=== PATIENT | female | born 1950 | race Caucasian/White ===

== ENCOUNTER 2019-02-17 16:00 | Emergency (ER) | payer MEDICARE, MEDICAID | END 2019-02-17 17:25 | disposition home or self-care (01) | LOC: UCEAST 16:00 | DX: S90.01XA Contusion of right ankle, initial encounter (principal); X58.XXXA Exposure to other specified factors, initial encounter; Y92.9 Unspecified place or not applicable; F79 Unspecified intellectual disabilities | CPT/HCPCS: 99211; G0463 ==

== ENCOUNTER 2019-07-15 11:44 | Emergency (ER) | payer MEDICARE, MEDICAID ==
[2019-07-15 13:11] LABS: ABS Eosinophils 0.2 10^3/ul (0-0.6); ABS Lymphocytes 2.8 10^3/ul (1.0-4.8); ABS Monocytes 0.8 10^3/ul (0-0.8); ABS Neutrophils 3.4 10^3/ul (1.5-7.7); Eosinophil % 2.1 %; Hematocrit 41 % (35-47); Hemoglobin 13.3 g/dL (12.0-16.0); Lymphocyte % 39.1 %; Mean Corpuscular HGB Conc 32 g/dL (31-36); Mean Corpuscular Hemoglobin 32 pg (27-31); Mean Corpuscular Volume 100 fL (80-97); Mean Platelet Volume 8.9 fL (7.4-10.4); Platelet Count 113 10^3/uL (150-450); Red Blood Count 4.11 10^6 /uL (3.70-4.87); Red Cell Distribution Width 13 % (10-15); White Blood Count 7.3 10^3/uL (3.5-10.8)
[2019-07-15 13:42] LABS: Albumin 3.9 g/dL (3.2-5.2); Albumin/Globulin Ratio 1.1 (1-3); BUN/Creatinine Ratio 44.4 (8-20); Calcium 9.3 mg/dL (8.6-10.3); EGFR African American 85.6 (>60); EGFR Non-African American 70.7 (>60); Globulin 3.4 g/dL (2-4); Potassium 3.5 mmol/L (3.5-5.0); Total Bilirubin 0.2 mg/dL (0.2-1.0); Total Protein 7.3 g/dL (6.4-8.9)
[2019-07-15 13:45] LABS: Urine Appearance Turbid; Urine Bilirubin Negative (Negative); Urine Blood 1+ (Negative); Urine Color Yellow; Urine Glucose Negative (Negative); Urine Ketones Trace (Negative); Urine Nitrite Negative (Negative); Urine Protein 2+(100 mg/dL) (Negative); Urine Specific Gravity 1.025 (1.010-1.030); Urine Urobilinogen Negative (Negative)
[2019-07-15 13:50] LABS: Urine Bacteria 3+ (Absent); Urine Red Blood Cell 3+(>10/hpf) (Absent); Urine White Blood Cell 3+(>20/hpf) (Absent)
[2019-07-15] MEDS ORDERED: Sulfamethox/Trimethoprim DS 800/160* TAB PO ONE (13:52)
[2019-07-15] MEDS ORDERED: NS 0.9% 1000 ML** 1,000 ML IV ONE (14:05)
[2019-07-15] MEDS ORDERED: Cefepime 2 GM in Dextrose(*) 2 GM/50 ML BAG IV ONE (14:06)
--- NOTE | 2019-07-15 14:07 | ED ---
HPI Febrile Illness - HPI Summary HPI Summary: This patient is a non-verbal 68-year-old female presenting to the ED with nurse esthetician with concerns for UTI. Patient has had intermittent fevers x several days, was seen at PCP office for her annual and given a regimen of Tylenol and ibuprofen d/t decreased PO intake and increased crying. Concern for some kind of pain, she has remained on this medication for several days without much improvement. Labs were obtained at the time and were WNL. Today, nurse esthetician states a concern for 101.9 temp at home and with concern for UTI. Decreased PO intake. Pt shakes her head "no" when asked if she has any pain. Stripping Machine Operator states this is her typical response. Fevers have been well controlled with Tylenol and ibuprofen at home. Continues to make urine without gross hematuria. No known kidney disease. - History of Current Complaint Chief Complaint: EDAltMentalStatus Time Seen by Provider: 07/15/19 12:13 Hx Obtained From: Family/Stripping Machine Operator Hx From Patient Unobtainable Due To: Other Onset/Duration: Started Days Ago Timing: Constant Initial Severity: Moderate Current Severity: Moderate Pain Intensity: 0 Pain Scale Used: Adult Non Verbal Aggravating Factors: Nothing Alleviating Factors: Nothing - Allergy/Home Medications Allergies/Adverse Reactions: Allergies Allergy/AdvReac Type Severity Reaction Status Date / Time aspirin Allergy Unknown Verified 07/15/19 12:00 Reaction Details carbamazepine Allergy Unknown Verified 07/15/19 12:00 Reaction Details metronidazole Allergy Unknown Verified 07/15/19 12:00 Reaction Details NSAIDS (Non-Steroidal Allergy Unknown Verified 07/15/19 12:00 Anti-Inflamma Reaction Details shellfish derived Allergy Unknown Verified 07/15/19 12:00 Reaction Details bioptic Allergy Intermediate Unknown Uncoded 11/04/12 04:49 Reaction Details seafood Allergy Intermediate Unknown Uncoded 11/04/12 04:49 Reaction Details PMH/Surg Hx/FS Hx/Imm Hx Previously Healthy: Yes Endocrine/Hematology History: Denies: Hx Diabetes, Hx Thyroid Disease Cardiovascular History: Denies: Hx Hypertension Respiratory History: Denies: Hx Asthma, Hx Chronic Obstructive Pulmonary Disease (COPD) GI History: Denies: Hx Ulcer Musculoskeletal History: Denies: Hx Osteoporosis Neurological History: Reports: Hx Seizures - Surgical History Surgery Procedure, Year, and Place: left eye implant, Vagal Nerve Stimulator - Immunization History Hx Pertussis Vaccination: No Immunizations Up to Date: Yes Infectious Disease History: No Infectious Disease History: Denies: Hx Hepatitis, Hx Human Immunodeficiency Virus (HIV), History Other Infectious Disease, Traveled Outside the [place] in Last 30 Days - Social History Occupation: Unemployed Lives: [facility] Alcohol Use: None Hx Substance Use: No Substance Use Type: Reports: None Hx Tobacco Use: No Smoking Status (MU): Never Smoked Tobacco Review of Systems - ROS Summary Review of Systems Summary: Pt non-verbal - ROS provided by nurse esthetician Positive: Fever. Negative: Chills, Fatigue, Skin Diaphoresis Negative: Palpitations, Chest Pain Negative: hematuria Negative: Bruising Positive: Slurred Speech All Other Systems Reviewed And Are Negative: Yes Physical Exam Triage Information Reviewed: Yes Vital Signs On Initial Exam: Initial Vitals Temp Pulse Resp BP Pulse Ox 99.5 F 89 16 115/78 96 07/15/19 11:52 07/15/19 11:52 07/15/19 11:52 07/15/19 11:52 07/15/19 11:52 Vital Signs Reviewed: Yes Completion Of Physical Exam Limited Due To: Other - non-verbal Skin: Positive: Warm, Skin Color Reflects Adequate Perfusion Head/Face: Positive: Normal Head/Face Inspection Eyes: Positive: EOMI, Conjunctiva Clear Neck: Positive: Supple, Nontender, No Lymphadenopathy Respiratory/Lung Sounds: Positive: Clear to Auscultation, Breath Sounds Present Cardiovascular: Positive: RRR, Pulses are Symmetrical in both Upper and Lower Extremities Musculoskeletal: Positive: Strength/ROM Intact Neurological: Positive: Speech Normal Psychiatric: Positive: Normal, Affect/Mood Appropriate Procedures - Sedation Patient Received Moderate/Deep Sedation with Procedure: No Diagnostics - Vital Signs Vital Signs Temp Pulse Resp BP Pulse Ox 07/15/19 11:52 99.5 F 89 16 115/78 96 - Laboratory Lab Results: Lab Results 07/15/19 07/15/19 07/15/19 Range/Units 12:54 12:54 13:27 WBC 7.3 (3.5-10.8) 10^3/uL RBC 4.11 (3.70-4.87) 10^6 /uL Hgb 13.3 (12.0-16.0) g/dL Hct 41 (35-47) % MCV 100 H (80-97) fL MCH 32 H (27-31) pg MCHC 32 (31-36) g/dL RDW 13 (10-15) % Plt Count 113 L (150-450) 10^3/uL MPV 8.9 (7.4-10.4) fL Neut % (Auto) 47.5 % Lymph % (Auto) 39.1 % [place] % (Auto) 10.8 % Eos % (Auto) 2.1 % Baso % (Auto) 0.5 % Absolute Neuts (auto) 3.4 (1.5-7.7) 10^3/ul Absolute Lymphs (auto) 2.8 (1.0-4.8) 10^3/ul Absolute Monos (auto) 0.8 (0-0.8) 10^3/ul Absolute Eos (auto) 0.2 (0-0.6) 10^3/ul Absolute Basos (auto) 0.0 (0-0.2) 10^3/ul Absolute Nucleated RBC 0.0 10^3/ul Nucleated RBC % 0.0 Sodium 143 (135-145) mmol/L Potassium 3.5 (3.5-5.0) mmol/L Chloride 112 H (101-111) mmol/L Carbon Dioxide 25 (22-32) mmol/L Anion Gap 6 (2-11) mmol/L BUN 36 H (6-24) mg/dL Creatinine 0.81 (0.51-0.95) mg/dL Est GFR ( Amer) 85.6 (>60) Est GFR (Non-Af Amer) 70.7 (>60) BUN/Creatinine Ratio 44.4 H (8-20) Glucose 88 (70-100) mg/dL Calcium 9.3 (8.6-10.3) mg/dL Total Bilirubin 0.20 (0.2-1.0) mg/dL AST 15 (13-39) U/L ALT 6 L (7-52) U/L Alkaline Phosphatase 69 (34-104) U/L Total Protein 7.3 (6.4-8.9) g/dL Albumin 3.9 (3.2-5.2) g/dL Globulin 3.4 (2-4) g/dL Albumin/Globulin Ratio 1.1 (1-3) Urine Color Yellow Urine Appearance Turbid Urine pH 7.0 (5-9) Ur Specific [place] 1.025 (1.010-1.030) Urine Protein 2+(100 mg/dl) A (Negative) Urine Ketones Trace A (Negative) Urine Blood 1+ A (Negative) Urine Nitrate Negative (Negative) Urine Bilirubin Negative (Negative) Urine Urobilinogen Negative (Negative) Ur Leukocyte Esterase 3+ A (Negative) Urine WBC (Auto) 3+(>20/hpf) A (Absent) Urine RBC (Auto) 3+(>10/hpf) A (Absent) Triple Phos Crystals Present A (Absent) Amorphous Crystals Present A (Absent) Urine Bacteria 3+ A (Absent) Hyaline Casts Present A (Absent) Urine Glucose Negative (Negative) Urine Ascorbic Acid * A (Negative) Result Diagrams: 07/15/19 12:54 07/15/19 12:54 Lab Statement: Any lab studies that have been ordered have been reviewed, and results considered in the medical decision making process. Course/Dx - Course Course Of Treatment: Physical examination, patient appears well and appears to be in no acute distress. Labs obtained which were WNL except for an elevated BUN/creatinine ratio and elevated BUN. Patient is likely dehydrated. She was repleted with 1 L fluids. Lungs CTA, RRR. Patient does not have cough or congestion or rhinorrhea. Stripping Machine Operator states no one else in house is sick. The patient has evidence of a UTI with 3+ leukocytes and 3+ WBC. Patient was treated with Cefepime 2mg IV with fluids. She will continue with bactrim at home PO. Pt will follow up in 2-3 days with PCP. Pt stable for discharge. - Febrile Illness Differential Diagnoses: Fever of Unknown Origin, Other: - UTI, viral illness - Diagnoses Provider Diagnoses: UTI (urinary tract infection) Discharge ED - Sign-Out/Discharge Documenting (check all that apply): Patient Departure - Discharge Plan Condition: Stable Disposition: HOME Prescriptions: Sulfamethox/Trimethoprim DS* [Bactrim DS 800/160 TAB*] 1 tab PO BID #10 tab Patient Education Materials: Urinary Tract Infection in Women (ED) Referrals: Priscilla Gonzales MD [Primary Care Provider] - Additional Instructions: Bactrim twice daily x 5 days - start this medication tomorrow morning Please follow up with PCP within the next week or so if symptoms persist Please discontinue any NSAIDS at this time - Billing Disposition and Condition Condition: STABLE Disposition: Home
[2019-07-15 15:50] VITALS: BP 120/77
[2019-07-15] MEDS ORDERED: Sulfamethox/Trimethoprim DS 800/160* TAB PO SCH (21:00)
--- NOTE | 2019-07-17 06:18 | ED ---
Imaging and Labs Follow Up Follow Up Type: Labs/Cultures Labs/Culture Result: Urine culture preliminary shows greater than 100,000 Escherichia coli. Patient Communication/Plan: Patient treated with Bactrim, presumed appropriate. Awaiting sensitivity reports. Provider Diagnoses: UTI (urinary tract infection)
== END 2019-07-15 15:50 | disposition home or self-care (01) ==
LOC: ED 11:44
DX: N39.0 Urinary tract infection, site not specified (principal); R50.9 Fever, unspecified
CPT/HCPCS: 36415; 80053; 81003; 81015; 85025; 87077; 87086; 87186; 96361; 96365; 99283; A9270-GY; J0692

== ENCOUNTER 2019-07-24 18:20 | Emergency (ER) | payer MEDICARE, MEDICAID ==
[2019-07-24 18:45] VITALS: BP 106/76
--- NOTE | 2019-07-24 19:05 | UC ---
FLU HPI - HPI Summary HPI Summary: 68-year-old female comes in with a chief complaint of cough and fever. Patient has special needs and she lives in a [facility]. When she had cough and they measured a low-grade fever they want to make sure she did not have the flu. Otherwise behaviors been normal. - History of Current Complaint Chief Complaint: UCGeneralIllness Stated Complaint: FEVER Time Seen by Provider: 07/24/19 18:39 Pain Intensity: 0 - Allergy/Home Medications Allergies/Adverse Reactions: Allergies Allergy/AdvReac Type Severity Reaction Status Date / Time aspirin Allergy Unknown Verified 07/24/19 18:45 Reaction Details carbamazepine Allergy Unknown Verified 07/24/19 18:45 Reaction Details metronidazole Allergy Unknown Verified 07/24/19 18:45 Reaction Details NSAIDS (Non-Steroidal Allergy Unknown Verified 07/24/19 18:45 Anti-Inflamma Reaction Details shellfish derived Allergy Unknown Verified 07/24/19 18:45 Reaction Details bioptic Allergy Intermediate Unknown Uncoded 07/24/19 18:45 Reaction Details seafood Allergy Intermediate Unknown Uncoded 07/24/19 18:45 Reaction Details PMH/Surg Hx/FS Hx/Imm Hx Previously Healthy: Yes - special needs,lives in [facility] Cardiovascular History: Hypertension Neurological History: Seizures - Surgical History Surgical History: Yes Surgery Procedure, Year, and Place: left eye implant, Vagal Nerve Stimulator - Family History Known Family History: Positive: Non-Contributory - Social History Alcohol Use: None Substance Use Type: None Smoking Status (MU): Never Smoked Tobacco Review of Systems All Other Systems Reviewed And Are Negative: Yes Constitutional: Positive: Fever Skin: Positive: Negative Eyes: Positive: Negative ENT: Positive: Negative Respiratory: Positive: Negative Cardiovascular: Positive: Negative Gastrointestinal: Positive: Negative Motor: Positive: Negative Neurovascular: Positive: Negative Musculoskeletal: Positive: Negative Neurological: Positive: Negative Psychological: Positive: Negative Is Patient Immunocompromised?: No Physical Exam Triage Information Reviewed: Yes Appearance: Well-Appearing, No Pain Distress, Well-Nourished Vital Signs: Initial Vital Signs Temp 98.1 F 07/24/19 18:40 Pulse 69 07/24/19 18:40 Resp 20 07/24/19 18:40 BP 106/76 07/24/19 18:40 Pulse Ox 100 07/24/19 18:40 Vital Signs Reviewed: Yes Eye Exam: Normal Eyes: Positive: Conjunctiva Clear ENT: Negative: Nasal drainage Neck: Positive: Supple Respiratory: Positive: Lungs clear, Normal breath sounds, No respiratory distress Cardiovascular: Positive: RRR Musculoskeletal: Positive: Other: - chronic muscular weakness Neurological: Positive: Alert Psychological: Positive: Normal Response To Family - Normal response to caregivers Skin Exam: Normal Flu Course/Dx - Course Course Of Treatment: In clinic patient does not have any fever. We will treat for upper respiratory tract infection symptoms and keep a close eye on her and if she gets worse she should get reevaluated. - Differential Dx/Diagnosis Provider Diagnosis: Upper respiratory infection Discharge ED - Sign-Out/Discharge Documenting (check all that apply): Patient Departure All imaging exams completed and their final reports reviewed: No Studies - Discharge Plan Condition: Stable Disposition: HOME Patient Education Materials: Upper Respiratory Infection (ED) Referrals: Priscilla Gonzales MD [Primary Care Provider] - Additional Instructions: FOLLOW UP WITH YOUR DOCTOR IF NOT COMPLETELY IMPROVED. GET REEVALUATED SOONER IF NOT IMPROVED OR WORSE OR ANY QUESTIONS OR CONCERNS. - Billing Disposition and Condition Condition: STABLE Disposition: Home
[2019-07-24 19:18] LABS: Influenza A Molecular NEGATIVE (Negative); Influenza B Molecular NEGATIVE (Negative)
== END 2019-07-24 19:34 | disposition home or self-care (01) ==
LOC: UCEAST 18:20
DX: J06.9 Acute upper respiratory infection, unspecified (principal); I10 Essential (primary) hypertension; Z88.6 Allergy status to analgesic agent; Z91.013 Allergy to seafood; Z88.8 Allergy status to other drugs, medicaments and biological substances; Z88.1 Allergy status to other antibiotic agents
CPT/HCPCS: 99212; G0463

== ENCOUNTER 2019-08-10 09:12 | Emergency (ER) | payer MEDICARE, MEDICAID ==
--- NOTE | 2019-08-10 09:44 | ED ---
HPI Febrile Illness - HPI Summary HPI Summary: This patient is a 68 year old female accompanied by a caregiver presenting to [facility] with a chief complaint of fever. Caregiver states she was seen at [facility] a few days ago - neg strep, neg influenza. Pt has been given Tylenol to manage fevers- but unclear cause. Pt has an appt wit PCP tomorrow, but brought for evaluation today. She states the patient normally feeds herself but had to be assisted today. She states she has not had urinary symptoms. Caregiver states she often gets UTIs and her urine always has odors. She denies cough, vomiting. Patient is non-verbal, however shakes her head in denial of pain. She states no changes in bowel movements. Caregiver states other members in the patient's home are sick, as of right now nobody at home has influenza or strep throat. Patient medications reviewed this visit on bedside MAR. Pt is mostly non verbal so report from caregiver - but pt answers No when asked if in pain - pt's caregiver believes this is accurate - History of Current Complaint Chief Complaint: EDFever Time Seen by Provider: 08/10/19 09:28 Hx Obtained From: Family/Marine Equipment Test Engineer Onset/Duration: Started Days Ago Pain Intensity: 0 Pain Scale Used: 0-10 Numeric - Allergy/Home Medications Allergies/Adverse Reactions: Allergies Allergy/AdvReac Type Severity Reaction Status Date / Time aspirin Allergy Unknown Verified 08/10/19 09:19 Reaction Details carbamazepine Allergy Unknown Verified 08/10/19 09:19 Reaction Details metronidazole Allergy Unknown Verified 08/10/19 09:19 Reaction Details NSAIDS (Non-Steroidal Allergy Unknown Verified 08/10/19 09:19 Anti-Inflamma Reaction Details shellfish derived Allergy Unknown Verified 08/10/19 09:19 Reaction Details bioptic Allergy Intermediate Unknown Uncoded 08/10/19 09:19 Reaction Details seafood Allergy Intermediate Unknown Uncoded 08/10/19 09:19 Reaction Details Home Medications: Home Medications Carbidopa/Levodopa [Carbidopa-Levodopa 25-100 Tab] 1 tab PO TID 08/10/19 [ History Confirmed 08/10/19] PMH/Surg Hx/FS Hx/Imm Hx Previously Healthy: No - non verbal Endocrine/Hematology History: Denies: Hx Diabetes, Hx Thyroid Disease Cardiovascular History: Denies: Hx Hypertension Respiratory History: Denies: Hx Asthma, Hx Chronic Obstructive Pulmonary Disease (COPD) GI History: Denies: Hx Ulcer Musculoskeletal History: Denies: Hx Osteoporosis Neurological History: Reports: Hx Seizures Psychiatric History: Reports: Other Psychiatric Issues/Disorders - non verbal - Cancer History Cancer Type, Location and Year: mentally challenged - Surgical History Surgery Procedure, Year, and Place: left eye implant, Vagal Nerve Stimulator Infectious Disease History: No Infectious Disease History: Denies: Hx Hepatitis, Hx Human Immunodeficiency Virus (HIV), History Other Infectious Disease, Traveled Outside the [place] in Last 30 Days - Family History Known Family History: Positive: Unknown, Non-Contributory - Social History Occupation: Disabled Lives: [facility] Alcohol Use: None Hx Substance Use: No Substance Use Type: Reports: None Hx Tobacco Use: No Smoking Status (MU): Never Smoked Tobacco Review of Systems - ROS Summary Review of Systems Summary: primarily non verbal - level 5 caveat Positive: Fever Negative: Cough Negative: Vomiting Genitourinary: Other - Denies Urinary Symptoms, besides odor which is normal for her. Positive: Other - Denies pain All Other Systems Reviewed And Are Negative: Yes Physical Exam - Summary Physical Exam Summary: Vital Signs Reviewed: Yes alert, non verbal, shakes head to some questions Eyes: Conjunctiva Clear, ELANA. EOM intact and full ENT: Hearing grossly normal TM x 2 clear, mmoist, uvula midline, no exudate, no erythema Neck: Positive: Supple Respiratory: Positive: No respiratory distress, No accessory muscle use + CTA throughout no w/r Cardiovascular: RRR nl s1, s2 no m/r CBT <2 sec abd soft + BS nt/nd no guarding, no distension Musculoskeletal Exam: contractures upper ext and feet Neurological: Positive: Alert, baseline per caregiver Psychological: Positive: Normal Response To examiner for pt's baseline Skin: Positive: no rash, no ecchymosis Triage Information Reviewed: Yes Vital Signs On Initial Exam: Initial Vitals Temp Pulse Resp BP Pulse Ox 100.4 F 90 12 106/65 93 08/10/19 09:15 08/10/19 09:15 08/10/19 09:15 08/10/19 09:15 08/10/19 09:15 Vital Signs Reviewed: Yes Procedures - Sedation Patient Received Moderate/Deep Sedation with Procedure: No Diagnostics - Vital Signs Vital Signs Temp Pulse Resp BP Pulse Ox 08/10/19 09:15 100.4 F 90 12 106/65 93 - Laboratory Result Diagrams: 08/10/19 10:07 08/10/19 10:07 Lab Statement: Any lab studies that have been ordered have been reviewed, and results considered in the medical decision making process. - Radiology CXR Radiology Interpretation Completed By: Radiologist Summary of Radiographic Findings: No evidence for acute findings. ED Provider has reviewed this report. Re-Evaluation - Re-Evaluation First Eval Re-Evaluation Time: 11:15 Comment: Patient's urines are remarkable for UTI. Will start treatment. Course/Dx - Course Course Of Treatment: Patient's a [age] female presents to urgent care with caregiver. Patient has had fevers responsive to Tylenol for 3-4 days. Patient had a negative flu and strep at urgent care couple days ago. Patient has been eating and drinking. No change in bowel or bladder. No apparent pain. Caregivers wanted her checked. On exam vital signs are stable with the exception of a low-grade temperature. Patient was given Tylenol around 8 AM. Bedside MAR. No focal findings concerning for infection. We'll check labs give fluid check a urine with a straight catheter recheck flu. Caregiver comfortable with plan. Will also check chest x-ray. Discharge ED - Discharge Plan Referrals: Priscilla Gonzales MD [Primary Care Provider] - - Attestation Statements Document Initiated by Scribe: Yes Documenting Scribe: Ren Suarez Provider For Whom Yefriibe is Documenting (Include Credential): Jolene Hunt MD Scribe Attestation: Ren Lopez, scribed for Jolene Hunt MD on 08/10/19 at 1126.
[2019-08-10] MEDS ORDERED: NS 0.9% 1000 ML** 1,000 ML IV ONE (09:54)
[2019-08-10 10:20] LABS: ABS Eosinophils 0.1 10^3/ul (0-0.6); ABS Lymphocytes 2.6 10^3/ul (1.0-4.8); ABS Monocytes 0.8 10^3/ul (0-0.8); ABS Neutrophils 3.6 10^3/ul (1.5-7.7); Hematocrit 39 % (35-47); Hemoglobin 13.1 g/dL (12.0-16.0); Lymphocyte % 36.4 %; Mean Corpuscular HGB Conc 33 g/dL (31-36); Mean Corpuscular Hemoglobin 33 pg (27-31); Mean Corpuscular Volume 99 fL (80-97); Mean Platelet Volume 9.2 fL (7.4-10.4); Nucleated Red Blood Cells % 0.1; Platelet Count 103 10^3/uL (150-450); Red Blood Count 3.98 10^6 /uL (3.70-4.87); Red Cell Distribution Width 13 % (10-15); White Blood Count 7.2 10^3/uL (3.5-10.8)
[2019-08-10 10:39] LABS: Albumin 3.8 g/dL (3.2-5.2); Albumin/Globulin Ratio 1.2 (1-3); BUN/Creatinine Ratio 35.5 (8-20); Calcium 8.8 mg/dL (8.6-10.3); EGFR African American 116.5 (>60); EGFR Non-African American 96.3 (>60); Globulin 3.1 g/dL (2-4); Potassium 3.3 mmol/L (3.5-5.0); Total Bilirubin 0.2 mg/dL (0.2-1.0); Total Protein 6.9 g/dL (6.4-8.9)
[2019-08-10 10:41] LABS: Influenza A Molecular NEGATIVE (Negative); Influenza B Molecular NEGATIVE (Negative)
[2019-08-10 11:03] LABS: Urine Appearance Turbid; Urine Bilirubin Negative (Negative); Urine Blood 2+ (Negative); Urine Color Amber; Urine Glucose Negative (Negative); Urine Ketones Negative (Negative); Urine Nitrite Negative (Negative); Urine Protein 1+(30 mg/dL) (Negative); Urine Specific Gravity 1.018 (1.010-1.030); Urine Urobilinogen Negative (Negative)
[2019-08-10 11:05] LABS: Urine Bacteria Absent (Absent); Urine Red Blood Cell 2+(6-10/hpf) (Absent); Urine White Blood Cell 3+(>20/hpf) (Absent)
[2019-08-10] MEDS ORDERED: cefTRIAXone(*) 1 GM in NS 0.9% 50 ML* 50 ML IVPB ONE (11:26)
[2019-08-10] MEDS ORDERED: Potassium Chloride* LIQUID 20 MEQ/15 ML UDC PO ONE (11:27)
[2019-08-10 12:17] VITALS: BP 117/77
--- NOTE | 2019-08-12 06:14 | ED ---
Imaging and Labs Follow Up Follow Up Type: Labs/Cultures Labs/Culture Result: Urine culture preliminary grew Escherichia coli 100,000 Patient Communication/Plan: This patient was placed on Keflex prior to discharge Patient Communication/Plan: We'll await sensitivities
== END 2019-08-10 12:16 | disposition home or self-care (01) ==
LOC: ED 09:12
DX: N39.0 Urinary tract infection, site not specified (principal); B96.20 Unspecified Escherichia coli [E. coli] as the cause of diseases classified elsewhere; Z87.440 Personal history of urinary (tract) infections; R50.9 Fever, unspecified; F79 Unspecified intellectual disabilities; Z88.8 Allergy status to other drugs, medicaments and biological substances; Z88.6 Allergy status to analgesic agent; Z91.013 Allergy to seafood
CPT/HCPCS: 36415; 51701; 71046; 80053; 81003; 81015; 85025; 87077; 87086; 87186; 96361; 96374; 99284; A9270-GY; J0696

== ENCOUNTER 2021-05-21 19:28 | Observation (INO) ==
[2021-05-21] MEDS ORDERED: NS 0.9% 1000 ml BAG 2,000 ML IV ONE (19:46)
[2021-05-21 21:06] LABS: ABS Neutrophils 7.3 10^3/ul (1.5-7.7); Eosinophil % 0.1 %; Hematocrit 44 % (35-47); Hemoglobin 14.3 g/dL (12.0-16.0); Lymphocyte % 19.6 %; Mean Corpuscular HGB Conc 33 g/dL (31-36); Mean Corpuscular Hemoglobin 33 pg (27-31); Mean Corpuscular Volume 100 fL (80-97); Mean Platelet Volume 8.9 fL (7.4-10.4); Platelet Count 244 10^3/uL (150-450); Red Blood Count 4.39 10^6 /uL (3.70-4.87); Red Cell Distribution Width 13 % (10-15); White Blood Count 10.4 10^3/uL (3.5-10.8)
[2021-05-21 21:16] LABS: Activated Partial Thrombo Time 28.5 seconds (26.0-38.0); INR 1.12 (0.86-1.15)
[2021-05-21 21:19] LABS: Influenza A Molecular Negative (Negative); Influenza B Molecular Negative (Negative)
[2021-05-21 21:20] LABS: Rapid COVID-19 Molecular Undetected (Undetected)
[2021-05-21 21:21] LABS: Albumin 4.3 g/dL (3.2-5.2); C Reactive Protein 2.9 mg/L (<8.01); Calcium 10.1 mg/dL (8.6-10.3); Globulin 4.3 g/dL (2-4); Total Bilirubin 0.4 mg/dL (0.2-1.0); Total Protein 8.6 g/dL (6.4-8.9)
[2021-05-21 21:23] LABS: Troponin I 0.02 ng/mL (<0.03)
[2021-05-21 21:59] LABS: Urine Appearance Cloudy; Urine Bilirubin Negative (Negative); Urine Blood Negative (Negative); Urine Color Yellow; Urine Glucose Negative (Negative); Urine Ketones Trace (Negative); Urine Nitrite Positive (Negative); Urine Protein Negative (Negative); Urine Specific Gravity 1.024 (1.002-1.030); Urine Urobilinogen Negative (Negative)
[2021-05-21] MEDS ORDERED: cefTRIAXone 1 gm/50 mL NS BAG 1 GM/50 ML BAG IV ONE (22:10)
[2021-05-21 22:52] LABS: Urine Bacteria 3+ (Absent); Urine Red Blood Cell 3+(>10/hpf) (Absent); Urine White Blood Cell 3+(>20/hpf) (Absent)
[2021-05-22] MEDS ORDERED: Lactated Ringers 500 ml BAG 500 ML IV ONE (02:38)
[2021-05-22] MEDS ORDERED: ZINC OXIDE TOPICAL PRN (02:39)
[2021-05-22 02:47] LABS: Calcium 9.1 mg/dL (8.6-10.3)
[2021-05-22] MEDS ORDERED: Lactated Ringers 1000 ml BAG 1,000 ML IV SCH (03:00)
[2021-05-22] MEDS: KCL 20 MEQ/100 ML IVPREMIX 20 MEQ/100 ML BAG IV SCH ×2 (04:07→06:27)
[2021-05-22] MEDS ORDERED: Potassium Chloride IV 2 MEQ/ML 10 ML VIAL (20 MEQ) IVPB SCH (06:00)
[2021-05-22 06:39] LABS: ABS Basophils 0.1 10^3/ul (0-0.2); ABS Eosinophils 0.1 10^3/ul (0-0.6); ABS Lymphocytes 2.5 10^3/ul (1.0-4.8); ABS Monocytes 0.8 10^3/ul (0-0.8); ABS Neutrophils 6.6 10^3/ul (1.5-7.7); Eosinophil % 0.8 %; Hematocrit 37 % (35-47); Hemoglobin 12.1 g/dL (12.0-16.0); Lymphocyte % 24.8 %; Mean Corpuscular HGB Conc 33 g/dL (31-36); Mean Corpuscular Hemoglobin 33 pg (27-31); Mean Corpuscular Volume 101 fL (80-97); Nucleated Red Blood Cells % 0.1; Platelet Count 184 10^3/uL (150-450); Red Blood Count 3.67 10^6 /uL (3.70-4.87); Red Cell Distribution Width 13 % (10-15)
[2021-05-22 06:56] LABS: Calcium 8.9 mg/dL (8.6-10.3); Potassium 3.8 mmol/L (3.5-5.0)
[2021-05-22] MEDS: Senna TAB 8.6 mg TAB PO SCH ×2 (08:36→20:36)
[2021-05-22] MEDS: Heparin 5000 UNITS/ML 1 mL VIAL SUBCUT SCH ×2 (08:37→20:29)
[2021-05-22] MEDS: CMCS: Dorzolamide/Timolol OPTH (NF) 10 ML BOT LEFT EYE SCH ×2 (08:38→20:54)
[2021-05-22] MEDS ORDERED: Zinc Oxide 16% PASTE (Butt Paste) 30 gm TUBE TOPICAL PRN (09:00)
[2021-05-22] MEDS ORDERED: Polyethylene Glycol 3350 17 GM PACKET PO SCH (09:00)
[2021-05-22] MEDS ORDERED: D5W 1000 ml BAG 1,000 ML IV SCH ×2 (10:00→18:00)
[2021-05-22] MEDS: Isosorbide Mononit ER 30mg TAB PO SCH (11:03)
[2021-05-22] MEDS: Carbidopa/Levodop CR 50/200 TAB.CR PO SCH ×3 (11:05→19:52)
[2021-05-22] MEDS: Multivitamins/Minerals TAB PO SCH (11:07)
[2021-05-22] MEDS: Magnesium Hydroxide LIQ 30 ML UDC PO SCH (11:08)
[2021-05-22] MEDS: Cholecalciferol (VIT D3) 1,000 unit TAB PO SCH (11:08)
[2021-05-22] MEDS ORDERED: KCL 20 MEQ/100 ML IVPREMIX 20 MEQ/100 ML BAG IV SCH (11:30)
[2021-05-22] MEDS ORDERED: NS 0.9% 1000 ml BAG 1,000 ML IV ONE (12:34)
[2021-05-22 15:48] LABS: Calcium 8.2 mg/dL (8.6-10.3); Potassium 3.4 mmol/L (3.5-5.0)
[2021-05-22] MEDS: Chlorhexidine MOUTHWASH 0.12% 15 ML UDC SWISH SPIT SCH ×2 (19:53→23:35)
[2021-05-22] MEDS ORDERED: ZONISAMIDE 50 MG PO SCH (21:00)
[2021-05-22] MEDS ORDERED: Latanoprost 0.005% 2.5 ml BTL LEFT EYE SCH (21:00)
[2021-05-22] MEDS ORDERED: cefTRIAXone 1 gm/50 mL NS BAG 1 GM/50 ML BAG IVPB SCH (22:00)
[2021-05-23] MEDS: Carbidopa/Levodop CR 50/200 TAB.CR PO SCH ×3 (00:19→14:01)
[2021-05-23] MEDS ORDERED: D5W 1000 ml BAG 1,000 ML IV SCH (07:00)
[2021-05-23 07:25] LABS: Calcium 8.4 mg/dL (8.6-10.3)
[2021-05-23] MEDS ORDERED: Potassium Chloride LIQUID 20 MEQ/15 ML LIQUID PO ONE (08:21)
[2021-05-23] MEDS: Heparin 5000 UNITS/ML 1 mL VIAL SUBCUT SCH (10:09)
[2021-05-23] MEDS: Isosorbide Mononit ER 30mg TAB PO SCH (10:12)
[2021-05-23] MEDS: Cholecalciferol (VIT D3) 1,000 unit TAB PO SCH (10:12)
[2021-05-23] MEDS: Multivitamins/Minerals TAB PO SCH (10:12)
[2021-05-23] MEDS: CMCS: Dorzolamide/Timolol OPTH (NF) 10 ML BOT LEFT EYE SCH (10:13)
[2021-05-23] MEDS: Senna TAB 8.6 mg TAB PO SCH (10:17)
[2021-05-23] MEDS: Magnesium Hydroxide LIQ 30 ML UDC PO SCH (10:17)
[2021-05-23 12:23] VITALS: BP 91/50
[2021-05-23] MEDS: Chlorhexidine MOUTHWASH 0.12% 15 ML UDC SWISH SPIT SCH (12:46)
[2021-05-23] MEDS ORDERED: Zonisamide 100 mg CAP (NF) PO SCH (21:00)
== END 2021-05-23 15:05 ==
LOC: ED 19:28 → INTOOBSV 05-22 02:31 → EDHOLD 05-22 02:31 → SUATTDRO 05-22 02:31 → OBSVTOIN 05-22 02:31 → MED 05-22 17:30
PROVIDERS: ADMIT Internal Medicine; ATTEND Internal Medicine

== ENCOUNTER 2021-07-23 10:09 | Inpatient (IN) ==
[2021-07-23 11:21] LABS: ABS Lymphocytes 2.1 10^3/ul (1.0-4.8); ABS Monocytes 0.8 10^3/ul (0-0.8); ABS Neutrophils 6.9 10^3/ul (1.5-7.7); Eosinophil % 0.5 %; Hematocrit 48 % (35-47); Hemoglobin 15.2 g/dL (12.0-16.0); Lymphocyte % 21.4 %; Mean Corpuscular HGB Conc 31 g/dL (31-36); Mean Corpuscular Hemoglobin 32 pg (27-31); Mean Corpuscular Volume 103 fL (80-97); Mean Platelet Volume 9.8 fL (7.4-10.4); Platelet Count 134 10^3/uL (150-450); Red Blood Count 4.72 10^6 /uL (3.70-4.87); Red Cell Distribution Width 14 % (10-15)
[2021-07-23 11:37] LABS: Activated Partial Thrombo Time 27.6 seconds (26.0-38.0); INR 1.17 (0.86-1.15); Rapid COVID-19 Molecular Undetected (Undetected)
[2021-07-23 11:38] LABS: ALT 6 U/L (7-52); AST 24 U/L (13-39); Albumin 4.4 g/dL (3.2-5.2); Alkaline Phosphatase 80 U/L (35-149); Blood Urea Nitrogen 55 mg/dL (6-24); C Reactive Protein 3.61 mg/L (<8.01); CO2 Carbon Dioxide 24 mmol/L (22-32); Calcium 10.1 mg/dL (8.6-10.3); Globulin 4.3 g/dL (2-4); Glucose 129 mg/dL (70-100); Total Protein 8.7 g/dL (6.4-8.9); eGFR CKD-EPI 70.6 (>60)
[2021-07-23 11:42] LABS: Anion Gap 12 mmol/L (2-11); Chloride 122 mmol/L (101-111); Sodium 158 mmol/L (135-145); Troponin I 0.03 ng/mL (<0.03)
[2021-07-23] MEDS ORDERED: Lactated Ringers 1000 ml BAG 1,000 ML IV ONE (11:44)
[2021-07-23] MEDS: KCL 20 MEQ/100 ML IVPREMIX 20 MEQ/100 ML BAG IV SCH ×2 (12:29→15:04)
[2021-07-23 13:12] LABS: Urine Appearance Cloudy; Urine Bilirubin Negative (Negative); Urine Blood Negative (Negative); Urine Color Yellow; Urine Glucose Negative (Negative); Urine Ketones 1+ (Negative); Urine Nitrite Negative (Negative); Urine Protein 1+(30 mg/dL) (Negative); Urine Specific Gravity 1.024 (1.002-1.030); Urine Urobilinogen Negative (Negative)
[2021-07-23 13:16] LABS: Urine Amorphous Crystals Present (Absent); Urine Bacteria 3+ (Absent); Urine Red Blood Cell 2+(6-10/hpf) (Absent); Urine Squamous Epithelial Cell Present (Absent); Urine White Blood Cell 3+(>20/hpf) (Absent)
[2021-07-23] MEDS ORDERED: cefTRIAXone 1 gm/50 mL NS BAG 1 GM/50 ML BAG IV ONE (13:21)
[2021-07-23] MEDS ORDERED: Carbidopa/Levodopa ER 25/100 TABLET.ER PO ONE (14:49)
[2021-07-23] MEDS ORDERED: Carbidopa/Levodop CR 50/200 TAB.CR PO ONE (15:00)
[2021-07-23] MEDS ORDERED: Bacitracin OINTMENT TUBE TOPICAL PRN (15:16)
[2021-07-23] MEDS ORDERED: Magnesium Hydroxide LIQ 30 ML UDC PO PRN (15:16)
[2021-07-23] MEDS ORDERED: Cefepime 1 GM in Dextrose 1 GM/50 ML BAG IV ONE (15:24)
[2021-07-23] MEDS: D5W 1000 ml BAG 1,000 ML IV SCH (18:24)
[2021-07-23 19:12] LABS: Calcium 9.5 mg/dL (8.6-10.3); Potassium 3.3 mmol/L (3.5-5.0); eGFR CKD-EPI 97.3 (>60)
[2021-07-23 19:12] LABS: Magnesium 2.8 mg/dL (1.9-2.7)
[2021-07-23] MEDS: Heparin 5000 UNITS/ML 1 mL VIAL SUBCUT SCH (21:07)
[2021-07-23] MEDS: Senna TAB 8.6 mg TAB PO SCH (21:08)
[2021-07-23] MEDS: Carbidopa/Levodop CR 50/200 TAB.CR PO SCH (21:09)
[2021-07-23] MEDS: CMCS:Zonisamide 50 mg CAP (NF) PO SCH (21:10)
[2021-07-23] MEDS: CMCS:Dorzolamide/Timolol OPTH (NF) 10 ML BOT LEFT EYE SCH (21:12)
[2021-07-23] MEDS: Latanoprost 0.005% 2.5 ml BTL LEFT EYE SCH (21:13)
[2021-07-24] MEDS: Cefepime 1 GM in Dextrose 1 GM/50 ML BAG IV SCH ×2 (02:43→16:19)
[2021-07-24] MEDS ORDERED: Cefepime ADVAN 1 GM in NS 0.9% 50 ML 50 ML IVPB SCH (03:00)
[2021-07-24] MEDS: D5W 1000 ml BAG 1,000 ML IV SCH (04:10)
[2021-07-24] MEDS: Heparin 5000 UNITS/ML 1 mL VIAL SUBCUT SCH ×3 (05:56→21:42)
[2021-07-24 07:25] LABS: Hematocrit 39 % (35-47); Hemoglobin 12.6 g/dL (12.0-16.0); Mean Corpuscular HGB Conc 32 g/dL (31-36); Mean Corpuscular Hemoglobin 33 pg (27-31); Mean Corpuscular Volume 102 fL (80-97); Red Blood Count 3.85 10^6 /uL (3.70-4.87); Red Cell Distribution Width 13 % (10-15); White Blood Count 6.9 10^3/uL (3.5-10.8)
[2021-07-24 07:33] LABS: Calcium 8.8 mg/dL (8.6-10.3); Potassium 3.1 mmol/L (3.5-5.0); eGFR CKD-EPI 101.6 (>60)
[2021-07-24 07:55] LABS: ABS Eosinophils 0.2 10^3/ul (0-0.6); ABS Lymphocytes 2.3 10^3/ul (1.0-4.8); ABS Monocytes 0.5 10^3/ul (0-0.8); ABS Neutrophils 3.9 10^3/ul (1.5-7.7); Eosinophil % 2.6 %; Mean Platelet Volume 10.4 fL (7.4-10.4); Nucleated Red Blood Cells % 0.1; Platelet Count 82 10^3/uL (150-450)
[2021-07-24] MEDS: Senna TAB 8.6 mg TAB PO SCH ×2 (08:34→20:39)
[2021-07-24] MEDS: Cholecalciferol (VIT D3) 1,000 unit TAB PO SCH (08:34)
[2021-07-24] MEDS: Isosorbide Mononit ER 30mg TAB PO SCH (08:36)
[2021-07-24] MEDS: Vitamin THERAPEUTIC TAB PO SCH (08:37)
[2021-07-24] MEDS: Carbidopa/Levodop CR 50/200 TAB.CR PO SCH ×3 (08:37→20:39)
[2021-07-24] MEDS: Polyethylene Glycol 3350 17 GM PACKET PO SCH (08:39)
[2021-07-24] MEDS: CMCS:Dorzolamide/Timolol OPTH (NF) 10 ML BOT LEFT EYE SCH ×2 (08:44→20:40)
[2021-07-24] MEDS ORDERED: Potassium Chlor 20 meq TAB.ER PO ONE (09:29)
[2021-07-24] MEDS ORDERED: NS 0.9% 1000 ml BAG 1,000 ML IV ONE (11:53)
[2021-07-24] MEDS: CMCS:Zonisamide 50 mg CAP (NF) PO SCH (20:40)
[2021-07-24] MEDS: Latanoprost 0.005% 2.5 ml BTL LEFT EYE SCH (20:40)
[2021-07-25] MEDS: Cefepime 1 GM in Dextrose 1 GM/50 ML BAG IV SCH (02:42)
[2021-07-25] MEDS: Heparin 5000 UNITS/ML 1 mL VIAL SUBCUT SCH ×3 (05:59→20:45)
[2021-07-25 06:54] LABS: ABS Eosinophils 0.2 10^3/ul (0-0.6); ABS Lymphocytes 2.8 10^3/ul (1.0-4.8); ABS Monocytes 0.5 10^3/ul (0-0.8); ABS Neutrophils 3.1 10^3/ul (1.5-7.7); Eosinophil % 2.6 %; Hematocrit 35 % (35-47); Hemoglobin 11.6 g/dL (12.0-16.0); Lymphocyte % 42.6 %; Mean Corpuscular HGB Conc 33 g/dL (31-36); Mean Corpuscular Hemoglobin 33 pg (27-31); Mean Corpuscular Volume 101 fL (80-97); Mean Platelet Volume 10.6 fL (7.4-10.4); Nucleated Red Blood Cells % 0.1; Platelet Count 56 10^3/uL (150-450); Red Blood Count 3.52 10^6 /uL (3.70-4.87); Red Cell Distribution Width 13 % (10-15); White Blood Count 6.6 10^3/uL (3.5-10.8)
[2021-07-25 07:10] LABS: Calcium 8.3 mg/dL (8.6-10.3); Magnesium 2.1 mg/dL (1.9-2.7); Potassium 3.7 mmol/L (3.5-5.0); eGFR CKD-EPI 101.6 (>60)
[2021-07-25] MEDS: Isosorbide Mononit ER 30mg TAB PO SCH (08:16)
[2021-07-25] MEDS: Senna TAB 8.6 mg TAB PO SCH ×2 (08:16→20:45)
[2021-07-25] MEDS: Polyethylene Glycol 3350 17 GM PACKET PO SCH (08:17)
[2021-07-25] MEDS: Vitamin THERAPEUTIC TAB PO SCH (08:17)
[2021-07-25] MEDS: Cholecalciferol (VIT D3) 1,000 unit TAB PO SCH (08:17)
[2021-07-25] MEDS: Carbidopa/Levodop CR 50/200 TAB.CR PO SCH ×3 (08:18→20:46)
[2021-07-25] MEDS: CMCS:Dorzolamide/Timolol OPTH (NF) 10 ML BOT LEFT EYE SCH ×2 (08:19→20:48)
[2021-07-25] MEDS ORDERED: Pneumococcal Vac 23-Polyvalent IM ONE (09:00)
[2021-07-25] MEDS ORDERED: Flu vaccine *QUAD* 2021-22* 0.5 ML SYRINGE IM ONE (09:00)
[2021-07-25] MEDS ORDERED: Lactated Ringers 1000 ml BAG 1,000 ML IV ONE (11:21)
[2021-07-25] MEDS ORDERED: cefTRIAXone 1 gm/50 mL NS BAG 1 GM/50 ML BAG IVPB SCH (15:00)
[2021-07-25] MEDS: Latanoprost 0.005% 2.5 ml BTL LEFT EYE SCH (20:47)
[2021-07-25] MEDS: CMCS:Zonisamide 50 mg CAP (NF) PO SCH (20:48)
[2021-07-26 05:05] LABS: ABS Eosinophils 0.1 10^3/ul (0-0.6); ABS Lymphocytes 2.7 10^3/ul (1.0-4.8); ABS Monocytes 0.7 10^3/ul (0-0.8); ABS Neutrophils 3.3 10^3/ul (1.5-7.7); Eosinophil % 2.1 %; Hematocrit 37 % (35-47); Hemoglobin 12.1 g/dL (12.0-16.0); Lymphocyte % 39.4 %; Mean Corpuscular HGB Conc 33 g/dL (31-36); Mean Corpuscular Hemoglobin 32 pg (27-31); Mean Corpuscular Volume 100 fL (80-97); Mean Platelet Volume 11.4 fL (7.4-10.4); Nucleated Red Blood Cells % 0.1; Platelet Count 67 10^3/uL (150-450); Red Blood Count 3.75 10^6 /uL (3.70-4.87); Red Cell Distribution Width 13 % (10-15); White Blood Count 6.9 10^3/uL (3.5-10.8)
[2021-07-26 05:19] LABS: Calcium 8.4 mg/dL (8.6-10.3); Magnesium 2.2 mg/dL (1.9-2.7); eGFR CKD-EPI 106.5 (>60)
[2021-07-26] MEDS: Heparin 5000 UNITS/ML 1 mL VIAL SUBCUT SCH ×2 (05:37→13:43)
[2021-07-26] MEDS: Cholecalciferol (VIT D3) 1,000 unit TAB PO SCH (09:02)
[2021-07-26] MEDS: Isosorbide Mononit ER 30mg TAB PO SCH (09:02)
[2021-07-26] MEDS: CMCS:Dorzolamide/Timolol OPTH (NF) 10 ML BOT LEFT EYE SCH (09:03)
[2021-07-26] MEDS: Polyethylene Glycol 3350 17 GM PACKET PO SCH (09:03)
[2021-07-26] MEDS: Vitamin THERAPEUTIC TAB PO SCH (09:03)
[2021-07-26] MEDS: Senna TAB 8.6 mg TAB PO SCH (09:03)
[2021-07-26] MEDS: Carbidopa/Levodop CR 50/200 TAB.CR PO SCH ×2 (09:04→13:43)
[2021-07-26 13:29] VITALS: BP 90/46
[2021-07-27 10:57] LABS: HIT ELISA 0.068 OD (<0.400); Heparin PF4 Antibody Interp Negative (Negative)
== END 2021-07-26 14:41 | DRG 690 ==
LOC: ED 10:09 → SUATTDRO 14:39 → EDHOLD 14:39 → MEDTELE 16:57
PROVIDERS: ADMIT Internal Medicine; ATTEND Student in an Organized Health Care Education/Training Program

== ENCOUNTER 2021-09-08 12:21 | Observation (INO) ==
[2021-09-08] MEDS ORDERED: Ondansetron 4 mg VIAL 2 MG/ML 2 ml VIAL IV ONE (14:46)
[2021-09-08 15:33] LABS: ABS Eosinophils 0.1 10^3/ul (0-0.6); ABS Lymphocytes 1.7 10^3/ul (1.0-4.8); ABS Monocytes 1.3 10^3/ul (0-0.8); ABS Neutrophils 12.8 10^3/ul (1.5-7.7); Eosinophil % 0.4 %; Hematocrit 46 % (35-47); Hemoglobin 15.2 g/dL (12.0-16.0); Mean Corpuscular HGB Conc 33 g/dL (31-36); Mean Corpuscular Hemoglobin 33 pg (27-31); Mean Corpuscular Volume 99 fL (80-97); Mean Platelet Volume 9.6 fL (7.4-10.4); Platelet Count 102 10^3/uL (150-450); Red Blood Count 4.66 10^6 /uL (3.70-4.87); Red Cell Distribution Width 13 % (10-15); White Blood Count 15.9 10^3/uL (3.5-10.8)
[2021-09-08] MEDS ORDERED: Lactated Ringers 1000 ml BAG 1,000 ML IV ONE ×2 (15:41→19:42)
[2021-09-08 15:43] LABS: Activated Partial Thrombo Time 31.7 seconds (26.0-38.0); INR 0.98 (0.86-1.15)
[2021-09-08 15:47] LABS: Albumin 4.5 g/dL (3.2-5.2); Albumin/Globulin Ratio 1.3 (1-3); C Reactive Protein 3.85 mg/L (<8.01); Calcium 10.3 mg/dL (8.6-10.3); Globulin 3.6 g/dL (2-4); Potassium 3.4 mmol/L (3.5-5.0); Total Bilirubin 0.3 mg/dL (0.2-1.0); Total Protein 8.1 g/dL (6.4-8.9); eGFR CKD-EPI 94.5 (>60)
[2021-09-08 16:52] LABS: Urine Appearance Turbid; Urine Bilirubin Negative (Negative); Urine Blood Negative (Negative); Urine Color Amber; Urine Glucose Negative (Negative); Urine Ketones Trace (Negative); Urine Nitrite Positive (Negative); Urine Protein Negative (Negative); Urine Specific Gravity 1.017 (1.002-1.030); Urine Urobilinogen Negative (Negative)
[2021-09-08] MEDS ORDERED: cefTRIAXone 1 gm/50 mL NS BAG 1 GM/50 ML BAG IV ONE (16:56)
[2021-09-08 17:12] LABS: Urine Bacteria Absent (Absent); Urine Red Blood Cell Absent (Absent); Urine White Blood Cell 3+(>20/hpf) (Absent)
[2021-09-08] MEDS ORDERED: Ondansetron 4 mg VIAL 2 MG/ML 2 ml VIAL IV PRN (19:40)
[2021-09-08] MEDS ORDERED: Al Hydrox/Mg Hydrox/Simet LIQ 30 ML UDC PO PRN (19:43)
[2021-09-08] MEDS ORDERED: ACETAZOLAMIDE SODIUM 500 MG PO SCH (21:00)
[2021-09-08] MEDS: Enoxaparin 40 MG/0.4 ML SYR SUBCUT SCH (21:04)
[2021-09-08] MEDS ORDERED: Carbidopa/Levodop CR 50/200 TAB.CR PO ONE (22:00)
[2021-09-08] MEDS: Senna TAB 8.6 mg TAB PO SCH (22:14)
[2021-09-08] MEDS: Docusate LIQ 100 MG/10 ML UDC PO SCH (22:15)
[2021-09-09] MEDS: PTO: Carbidopa/Levodopa ER 25/100 TABLET.ER PO SCH ×4 (03:07→20:28)
[2021-09-09] MEDS: PTO: Dorzolamide/Timolol OPTH (NF) 10 ML BOT LEFT EYE SCH ×3 (03:07→20:59)
[2021-09-09] MEDS: PTO: Brimonidine 0.2% 5 ML BTL LEFT EYE SCH ×3 (03:07→20:59)
[2021-09-09] MEDS: PTO: Latanoprost 0.005% 2.5 ml BTL LEFT EYE SCH ×2 (03:14→20:59)
[2021-09-09] MEDS: ZONISAMIDE 100 MG PO SCH ×2 (03:15→20:35)
[2021-09-09 06:14] LABS: ABS Eosinophils 0.1 10^3/ul (0-0.6); ABS Lymphocytes 2.4 10^3/ul (1.0-4.8); ABS Monocytes 0.7 10^3/ul (0-0.8); ABS Neutrophils 4.4 10^3/ul (1.5-7.7); Eosinophil % 1.3 %; Hematocrit 39 % (35-47); Hemoglobin 12.6 g/dL (12.0-16.0); Lymphocyte % 32.1 %; Mean Corpuscular HGB Conc 32 g/dL (31-36); Mean Corpuscular Hemoglobin 32 pg (27-31); Mean Corpuscular Volume 99 fL (80-97); Mean Platelet Volume 9.3 fL (7.4-10.4); Nucleated Red Blood Cells % 0.1; Platelet Count 80 10^3/uL (150-450); Red Blood Count 3.91 10^6 /uL (3.70-4.87); Red Cell Distribution Width 13 % (10-15); White Blood Count 7.6 10^3/uL (3.5-10.8)
[2021-09-09 06:27] LABS: Potassium 3.7 mmol/L (3.5-5.0); eGFR CKD-EPI 101.6 (>60)
[2021-09-09] MEDS: Isosorbide Mononit ER 30mg TAB PO SCH (10:35)
[2021-09-09] MEDS: Senna TAB 8.6 mg TAB PO SCH ×2 (10:35→20:34)
[2021-09-09] MEDS: Polyethylene Glycol 3350 17 GM PACKET PO SCH (10:37)
[2021-09-09] MEDS: Docusate LIQ 100 MG/10 ML UDC PO SCH ×2 (10:37→20:30)
[2021-09-09] MEDS: Chlorhexidine MOUTHWASH 0.12% 15 ML UDC SWISH SPIT SCH ×2 (10:41→21:04)
[2021-09-09] MEDS ORDERED: cefTRIAXone 1 gm/50 mL NS BAG 1 GM/50 ML BAG IVPB SCH (15:00)
[2021-09-09] MEDS: Enoxaparin 40 MG/0.4 ML SYR SUBCUT SCH (20:31)
[2021-09-10 04:01] VITALS: BP 145/82
[2021-09-10] MEDS: PTO: Dorzolamide/Timolol OPTH (NF) 10 ML BOT LEFT EYE SCH (09:21)
[2021-09-10] MEDS: Senna TAB 8.6 mg TAB PO SCH (09:23)
[2021-09-10] MEDS: Isosorbide Mononit ER 30mg TAB PO SCH (09:23)
[2021-09-10] MEDS: PTO: Carbidopa/Levodopa ER 25/100 TABLET.ER PO SCH (09:24)
[2021-09-10] MEDS: Docusate LIQ 100 MG/10 ML UDC PO SCH (09:25)
[2021-09-10] MEDS: Polyethylene Glycol 3350 17 GM PACKET PO SCH (09:26)
[2021-09-10] MEDS: PTO: Brimonidine 0.2% 5 ML BTL LEFT EYE SCH (09:28)
[2021-09-10] MEDS ORDERED: cefTRIAXone 1 gm/50 mL NS BAG 1 GM/50 ML BAG IVPB SCH (10:30)
== END 2021-09-10 11:05 | disposition home or self-care (01) ==
LOC: ED 12:21 → EDHOLD 12:21 → SUATTDRO 19:40 → EDHOLD 09-09 01:52 → MEDTELE 09-09 02:19
PROVIDERS: ADMIT Hospitalist; ATTEND Student in an Organized Health Care Education/Training Program

== ENCOUNTER 2022-06-09 18:56 | Observation (INO) ==
[2022-06-09 20:22] LABS: ABS Eosinophils 0.2 10^3/ul (0-0.6); ABS Lymphocytes 2.3 10^3/ul (1.0-4.8); ABS Monocytes 0.7 10^3/ul (0-0.8); ABS Neutrophils 4.3 10^3/ul (1.5-7.7); Eosinophil % 2.1 %; Hematocrit 41 % (35-47); Hemoglobin 13.3 g/dL (12.0-16.0); Lymphocyte % 30.6 %; Mean Corpuscular HGB Conc 33 g/dL (31-36); Mean Corpuscular Hemoglobin 32 pg (27-31); Mean Corpuscular Volume 99 fL (80-97); Mean Platelet Volume 8.7 fL (7.4-10.4); Platelet Count 134 10^3/uL (150-450); Red Blood Count 4.12 10^6 /uL (3.70-4.87); Red Cell Distribution Width 12 % (10-15); White Blood Count 7.5 10^3/uL (3.5-10.8)
[2022-06-09 20:47] LABS: Albumin 4.1 g/dL (3.2-5.2); Albumin/Globulin Ratio 1.1 (1-3); Globulin 3.7 g/dL (2-4); Potassium 3.6 mmol/L (3.5-5.0); Total Bilirubin 0.2 mg/dL (0.2-1.0); Total Protein 7.8 g/dL (6.4-8.9); eGFR CKD-EPI 82.2 (>60)
[2022-06-09 21:07] LABS: Urine Appearance Cloudy; Urine Bilirubin Negative (Negative); Urine Blood Negative (Negative); Urine Color Amber; Urine Glucose Negative (Negative); Urine Ketones 1+ (Negative); Urine Nitrite Positive (Negative); Urine Protein 2+(100 mg/dL) (Negative); Urine Specific Gravity 1.023 (1.002-1.030); Urine Urobilinogen Negative (Negative)
[2022-06-09 21:16] LABS: Urine Bacteria 3+ (Absent); Urine Red Blood Cell 3+(>10/hpf) (Absent); Urine Squamous Epithelial Cell Present (Absent); Urine White Blood Cell 3+(>20/hpf) (Absent)
[2022-06-09] MEDS ORDERED: cefTRIAXone 1 gm/50 mL D5W 1 GM/50 ML BAG IV ONE (21:47)
[2022-06-09] MEDS ORDERED: Lactated Ringers 1000 ml BAG 1,000 ML IV ONE (22:45)
[2022-06-10] MEDS ORDERED: Bacitracin OINTMENT TUBE TOPICAL PRN (00:09)
[2022-06-10] MEDS ORDERED: Al Hydrox/Mg Hydrox/Simet LIQ 30 ML UDC PO PRN (00:09)
[2022-06-10] MEDS ORDERED: Magnesium Hydroxide LIQ 30 ML UDC PO PRN (00:09)
[2022-06-10] MEDS ORDERED: Lactated Ringers 1000 ml BAG 1,000 ML IV SCH (01:00)
[2022-06-10] MEDS: Isosorbide Mononit ER 30mg TAB PO SCH ×3 (09:53→13:30)
[2022-06-10] MEDS: Chlorhexidine MOUTHWASH 0.12% 15 ML UDC SWISH SPIT SCH ×4 (09:54→22:57)
[2022-06-10] MEDS: Senna TAB 8.6 mg TAB PO SCH ×4 (09:58→21:40)
[2022-06-10] MEDS: Enoxaparin 40 MG/0.4 ML SYR SUBCUT SCH (09:58)
[2022-06-10] MEDS ORDERED: D5W IVPB ONE (19:30)
[2022-06-10] MEDS ORDERED: TRIMETH IVPB ONE (19:30)
[2022-06-10] MEDS ORDERED: SULFAMETHOXAZOLE IVPB ONE (19:30)
[2022-06-10] MEDS ORDERED: CMCS: Zonisamide 100 mg CAP (NF) PO SCH (21:00)
[2022-06-10] MEDS ORDERED: LATANOPROST 0.005% LEFT EYE SCH (21:00)
[2022-06-11] MEDS: Enoxaparin 40 MG/0.4 ML SYR SUBCUT SCH (05:02)
[2022-06-11 07:34] LABS: ABS Eosinophils 0.3 10^3/ul (0-0.6); ABS Monocytes 0.7 10^3/ul (0-0.8); ABS Neutrophils 3.4 10^3/ul (1.5-7.7); Eosinophil % 4.1 %; Hematocrit 38 % (35-47); Hemoglobin 12.3 g/dL (12.0-16.0); Lymphocyte % 40.5 %; Mean Corpuscular HGB Conc 32 g/dL (31-36); Mean Corpuscular Hemoglobin 32 pg (27-31); Mean Corpuscular Volume 98 fL (80-97); Mean Platelet Volume 8.7 fL (7.4-10.4); Nucleated Red Blood Cells % 0.1; Platelet Count 112 10^3/uL (150-450); Red Blood Count 3.86 10^6 /uL (3.70-4.87); Red Cell Distribution Width 12 % (10-15); White Blood Count 7.4 10^3/uL (3.5-10.8)
[2022-06-11 07:55] LABS: Calcium 8.6 mg/dL (8.6-10.3); Potassium 3.6 mmol/L (3.5-5.0); eGFR CKD-EPI 98.7 (>60)
[2022-06-11] MEDS: Isosorbide Mononit ER 30mg TAB PO SCH (09:40)
[2022-06-11] MEDS: Senna TAB 8.6 mg TAB PO SCH (09:41)
[2022-06-11] MEDS: Chlorhexidine MOUTHWASH 0.12% 15 ML UDC SWISH SPIT SCH (10:08)
[2022-06-11 11:34] VITALS: BP 136/54
[2022-06-11] MEDS ORDERED: cefTRIAXone 1 gm/50 mL D5W 1 GM/50 ML BAG IV ONE (12:30)
[2022-06-11] MEDS ORDERED: cefTRIAXone 1 gm/50 mL D5W 1 GM/50 ML BAG IV SCH (16:00)
== END 2022-06-11 15:31 ==
LOC: EDHOLD 18:56 → ED 18:56 → SUATTDRO 06-10 00:03 → EDHOLD 06-10 01:20 → MED 06-10 19:25
PROVIDERS: ADMIT Internal Medicine; ATTEND Hospitalist